=== PATIENT | female | born 1945 | race African-American/Black ===

== ENCOUNTER 2018-02-27 13:07 | Emergency (ER) | payer OTHER, MEDICARE ==
[~2018-02-27] VITALS: Ht 190.5 cm; Wt 70.5 kg
[~2018-02-27 13:07] MED LIST: APRESOLINE100 MG PO; ASPIR-LOW81 MG PO; ASPIRIN81 M1 PO; AVAPRO300 MG PO; Aspirin E.C. PO; BYSTOLIC5 MG PO; CALCITRIOL0.25 MCG PO; CARDIZEM CD,CA120 MG PO; CARDIZEM CD180 MG PO; CARDIZEM120 MG PO; CARDURA1 MG PO; CARDURA2 M1 PO; CARDURA4 MG PO; CATAPRES0.3 MG PO; CEFUROXIME250 MG PO; CHILDREN'S ASPI81 M1 PO; CLONIDINE HCL0.3 MG PO; Cardizem CD,Cartia X PO; Cardura PO; Catapres PO; DOXAZOSIN MESYLA4 MG PO; DOXYCYCLINE HY100 MG PO; Epogen,Procrit SQ; FUROSEMIDE20 MG PO; HUMULIN R100 UNITS/ IM; HUMULIN R100 UNITS/ SC; HYCODAN SYRUP480 ML PO; HYDRALAZINE HC100 MG PO; IRBESARTAN300 MG PO; LASIX20 MG PO; LASIX40 MG PO; LIDOCAINE700 MG TD; LIPITOR20 MG PO; LIPITOR40 MG PO; Lipitor PO; NORVASC5 M1 PO; NOVOLIN N100 UNITS/ SC; PRILOSEC20 MG PO; PRILOSEC40 MG PO; PROCRIT10000 UNI1 IV; PROCRIT10000 UNI1 SC; PROCRIT10000 UNIT SC; PROCRIT40000 UNI1 IV; Rocaltrol PO; SIMVASTATIN40 M1 PO; TAZTIA XT120 M1 PO; TAZTIA XT180 M1 PO; TEKTURNA HCT1 TABLE3 PO; TRAMADOL HCL50 MG PO; ULTRAM50 MG PO; VITAMIN D2000 INTUN PO; VITAMIN D32000 UNI1 PO; VITAMIN D400 UNIT PO; Vicodin,Norco 5/325 PO; Vitamin D PO
[2018-02-27 13:45] LABS: BASOPHIL (%) 0.4 % (0-1); EOSINOPHIL (%) 0.4 % (0-5); HEMATOCRIT 26.5 % (36.0-46.0); IMMATURE GRANULOCYTE (%) 0.8 % (0.0-0.7); LYMPHOCYTE (%) 12.5 % (15-42); LYMPHOCYTE COUNT 0.7 K/uL (1.0-2.8); MCH 31.3 PG (29.0-34.0); MONOCYTE (%) 6.5 % (3-12); MONOCYTE COUNT 0.3 K/uL (0-0.8); NEUTROPHIL (%) 79.4 % (45-76); NEUTROPHIL COUNT 4.2 K/uL (1.8-6.4); PLATELET COUNT 107 K/uL (156-360); RBC DIS.WIDTH-CV 13.3 % (11.8-14.6); RBC DIS.WIDTH-SD 45.1 % (39-53); RED BLOOD COUNT 2.88 M/uL (3.80-5.20); WHITE BLOOD COUNT 5.2 K/uL (4.1-10.2)
[2018-02-27 14:14] LABS: CHLORIDE 111 MEQ/L (99-109); SODIUM 141 MEQ/L (136-147)
[2018-02-27 14:19] LABS: CREATININE 2.3 MG/DL (0.6-1.3); GFR ESTIMATE (CALCULATED) 27 mL/min/; GLUCOSE 118 mg/dL (70-99); UREA NITROGEN (BUN) 46 mg/dL (9-23)
[2018-02-27 15:55] LABS: APPEARANCE CLEAR ((CLEAR)); BILIRUBIN NEGATIVE; BLOOD NEGATIVE; COLOR YELLOW ((YELLOW)); GLUCOSE (STRIP) NEGATIVE; KETONES NEGATIVE; LEUKOCYTES TRACE; NITRITE NEGATIVE; PROTEIN (STRIP) 30; UROBILINOGEN 0.2 MG/DL (0.2-1.0)
[2018-02-27 16:00] LABS: BACTERIA NONE SEEN /HPF; EPITHELIAL CELLS RARE /HPF; HYALINE CASTS 0-5 /LPF; MUCUS NONE SEEN /LPF; RED BLOOD CELLS 0-5 /HPF (0-5); WHITE BLOOD CELLS 0-5 /HPF (0-5)
[2018-02-27 17:15] VITALS: BP 157/60
== END 2018-02-27 17:15 | disposition home or self-care (01) ==
LOC: EME 13:07
PROVIDERS: Emergency Medicine
DX: R42 Dizziness and giddiness (principal); I25.10 Atherosclerotic heart disease of native coronary artery without angina pectoris; I12.9 Hypertensive chronic kidney disease with stage 1 through stage 4 chronic kidney disease, or unspecified chronic kidney disease; E11.22 Type 2 diabetes mellitus with diabetic chronic kidney disease; N18.9 Chronic kidney disease, unspecified; E78.5 Hyperlipidemia, unspecified; Z90.49 Acquired absence of other specified parts of digestive tract; Z87.891 Personal history of nicotine dependence; Z95.5 Presence of coronary angioplasty implant and graft; Z96.651 Presence of right artificial knee joint; Z79.82 Long term (current) use of aspirin; Z88.1 Allergy status to other antibiotic agents; Z88.8 Allergy status to other drugs, medicaments and biological substances
CPT/HCPCS: 71045; 80048; 81003; 85025; 87086; 93005; 99281; 99284